=== PATIENT | female | born 1955 ===

== ENCOUNTER 2018-07-08 09:32 | Emergency (ER) | payer OTHER ==
[2018-07-08 09:44] VITALS: BMI 32.1
[2018-07-08 09:45] VITALS: RESP 16; TEMP 99.1
--- NOTE | 2018-07-08 13:38 | CT ---
Date of service: 07/08/2018 PROCEDURE: CT Thoracic Spine without contrast HISTORY: fall, h/o osteoporosis, r/o fracture COMPARISON: None available. TECHNIQUE: Axial computed tomography images were obtained of the thoracic spine without intravenous contrast. Coronal and sagittal reformatted images were created and reviewed. Radiation dose: Total exam DLP = 729.41 mGy-cm. This CT exam was performed using one or more of the following dose reduction techniques: Automated exposure control, adjustment of the mA and/or kV according to patient size, and/or use of iterative reconstruction technique. FINDINGS: VERTEBRAE: Dextroscoliotic thoracic spine deformity appears stable with no acute fracture or spondylolisthesis identified in the interval. Mild multilevel mid thoracic spondylosis identified. DISCS/SPINAL CANAL/NEURAL FORAMINA: Within the limits of the CT technique, no disc herniation seen. No central canal or neural foraminal stenosis.. PARASPINAL SOFT TISSUES: Unremarkable. OTHER FINDINGS: Unremarkable. IMPRESSION: Mild dextroscoliotic lumbar thoracic spinal deformity without acute fracture or spondylolisthesis identified. No bony central canal or neural foraminal stenosis appreciated.
--- NOTE | 2018-07-08 13:46 | CT ---
Date of service: 07/08/2018 PROCEDURE: CT Lumbar Spine without contrast HISTORY: fall, h/o osteoporosis, r/o fracture COMPARISON: None available. TECHNIQUE: Axial computed tomography images were obtained of the lumbar spine without the use of intravenous contrast. Coronal and sagittal reformatted images were created and reviewed. Radiation dose: Total exam DLP = 951.33 mGy-cm. This CT exam was performed using one or more of the following dose reduction techniques: Automated exposure control, adjustment of the mA and/or kV according to patient size, and/or use of iterative reconstruction technique. FINDINGS: VERTEBRAE: Normal lumbar curvature without vertebral body or posterior element fracture identified. Minimal multilevel spondylosis identified. Vertebral body and disc interspace heights are within normal limits. Small sclerotic foci identified at L4 and L5 as well as at S1 toward the left in particular. These are nonspecific in appearance but follow-up nuclear bone scan is advised to exclude potential aggressive bone lesion. There are not typical for benign hemangiomata although 1 May be present at L1 which is somewhat lucent toward the left as well. Multilevel facet joint degenerative arthropathy. Visualized prevertebral paraspinal soft tissues appear diffusely unremarkable. DISCS/SPINAL CANAL/NEURAL FORAMINA: L1-2: Unremarkable. L2-3: Unremarkable. Minimal disc bulging identified. L3-4: Mild generalized disc bulging is noted as well as mild facet degenerative arthropathy resulting in a borderline central canal stenosis. No significant neural foraminal stenosis bilaterally. L4-5: A generalized disc bulge is identified combining with facet arthropathy resulting in moderate central canal stenosis a [id number] bilateral neural foraminal stenoses. L5-S1: Minimal generalized disc bulging is appreciate without significant stenosis resulting. OTHER FINDINGS: None. IMPRESSION: 1. No acute fracture or spondylolisthesis identified. Level spondylosis and facet arthropathy is appreciated. 2. Moderate degenerative central canal stenosis L4-5 as well as [id number] bilateral neural foraminal stenoses. No gross disc herniation throughout the exam, however, MRI is more sensitive and can be performed for follow-up clinically warranted on an elective basis. 3. A few sclerotic foci are identified at the inferior lumbar spine and upper sacrum for which follow-up whole-body nuclear bone scan is advised with SPECT, to exclude potential aggressive bone lesion. Possible benign hemangioma L1.
--- NOTE | 2018-07-08 13:49 | CT ---
Date of service: 07/08/2018 PROCEDURE: CT Pelvis without contrast HISTORY: fall, h/o osteoporosis, r/o fracture COMPARISON: None available. TECHNIQUE: Contiguous axial images of the pelvis . No intravenous or oral contrast given. Coronal and sagittal reformats generated. Radiation dose: Total exam DLP = 754.99 mGy-cm. This CT exam was performed using one or more of the following dose reduction techniques: Automated exposure control, adjustment of the mA and/or kV according to patient size, and/or use of iterative reconstruction technique. FINDINGS: BLADDER: Unremarkable. No mass. REPRODUCTIVE ORGANS: Unremarkable. VISUALIZED BOWEL: Moderate retained fecal material is seen in various large-bowel segments with minimal sigmoid diverticular changes. No acute diverticulitis. PERITONEUM: Unremarkable, as visualized. No free fluid. No free air. LYMPH NODES: Unremarkable. No enlarged lymph nodes. BONES: No displaced fracture is identified throughout the pelvic ring with the pubic symphysis appear intact as well as the bilateral pubic bones. Sclerotic lesions identified at the lateral portion of L1 as well as more inferiorly at the left sacral ala is similar smaller focus is seen at the inferior medial left iliac bone with mild degenerative changes identified in the bilateral hip and sacroiliac joints. No SI joint distraction or hip joint dislocation identified. VASCULATURE: Unremarkable. OTHER FINDINGS: None. IMPRESSION: No acute bony or soft tissue findings grossly evident as imaged in this noncontrast examination. Few sclerotic foci are identified at the sacrum and left iliac bone for which follow-up nuclear bone scan can be performed with SPECT for added characterization. No lytic bony lesions identified. Limited bilateral sacroiliac and hip joint degenerative changes.
[2018-07-08 14:25] VITALS: BP 136/78; PULSE 72; O2SAT 99
--- NOTE | 2018-07-08 22:25 | ED PDOC ---
HPI: Back Time Seen by Provider: 07/08/18 10:59 Chief Complaint (Nursing): Back Pain Additional Complaint(s): 63 y/o with PMH of HTN and Osteoporosis presents to ED for back pain s/p mechanical fall on Saturday. Pt is not on blood thinners. States she fell on her back down 1 step after slipping on a wooden stair. Pain is bilateral over thoracic and lumbar spine with associated pain of pelvis. Pain is worse with movement. She is able to ambulate without difficulty. Denies head injury or LOC. Denies fevers, chills, headache, difficulty walking, vision changes, dizziness, bowel/bladder incontinence, saddle anesthesia, leg paresthesias or numbness, abdominal pain, N/V, bruising, swelling. Past Medical History Reviewed: Historical Data, Nursing Documentation, Vital Signs Vital Signs: Last Vital Signs Temp 99.1 F 07/08/18 09:43 Pulse 72 07/08/18 14:24 Resp 16 07/08/18 14:24 BP 136/78 07/08/18 14:24 Pulse Ox 99 07/08/18 14:24 - Medical History PMH: Arthritis (OSTEOARTHRITIS), Asthma, HTN, Hypercholesterolemia, Hyperlipidemia, Osteoporosis Denies: Atrial Fibrillation, CHF, COPD, Diabetes, Chronic Kidney Disease, Seizures - Surgical History Surgical History: Denies: CABG, Pacemaker - Family History Family History: States: Hypertension Denies: CAD - Immunization History Hx Tetanus Toxoid Vaccination: No Hx Influenza Vaccination: Yes - Home Medications Home Medications: Ambulatory Orders Medication Instructions Recorded Hydrochlorothiazide [Microzide] 12.5 mg PO DAILY #30 cap 06/24/16 Alendronate Sodium [Binosto] 70 mg PO Q7D 07/20/16 Atorvastatin [Lipitor] 20 tab PO HS 10/25/17 Cholecalciferol (Vitamin D3) 1 cap PO DAILY 10/25/17 [Vitamin D3] Fluticasone Furoate [Arnuity 1 puff IH BID 10/25/17 Ellipta] Montelukast [Singulair] 10 tab PO HS 10/25/17 metFORMIN [glucOPHAGE] 500 tab PO BID 10/25/17 - Allergies Allergies/Adverse Reactions: Allergies Allergy/AdvReac Type Severity Reaction Status Date / Time No Known Allergies Allergy Verified 07/08/16 21:58 Review of Systems ROS Statement: Except As Marked, All Systems Reviewed And Found Negative Constitutional: Negative for: Fever, Chills Eyes: Negative for: Vision Change ENT: Negative for: Ear Pain, Nose Pain, Mouth Pain, Throat Pain Cardiovascular: Negative for: Chest Pain, Palpitations Respiratory: Negative for: Cough, Shortness of Breath Gastrointestinal: Negative for: Nausea, Vomiting, Abdominal Pain, Diarrhea, Constipation Genitourinary Female: Negative for: Dysuria, Frequency, Incontinence Musculoskeletal: Positive for: Back Pain (thoracic, lumbar, pelvis), Leg Pain (right knee). Negative for: Neck Pain, Shoulder Pain Skin: Negative for: Rash Neurological: Negative for: Weakness, Numbness, Altered Mental Status, Headache, Dizziness Physical Exam - Reviewed Nursing Documentation Reviewed: Yes Vital Signs Reviewed: Yes - Physical Exam Appears: Positive for: Well, Non-toxic, No Acute Distress Head Exam: Positive for: ATRAUMATIC, NORMAL INSPECTION, NORMOCEPHALIC Skin: Positive for: Normal Color, Warm, DRY Eye Exam: Positive for: EOMI, Normal appearance, PERRL ENT: Positive for: Normal ENT Inspection Neck: Positive for: Normal, Painless ROM Cardiovascular/Chest: Positive for: Regular Rate, Rhythm Respiratory: Positive for: CNT, Normal Breath Sounds Pulses-Dorsalis Pedis (L): 2+ Pulses-Dorsalis Pedis (R): 2+ Pulses-Radial (L): 2+ Pulses-Radial (R): 2+ Gastrointestinal/Abdominal: Positive for: Normal Exam, Soft Back: Positive for: Normal Inspection, Vertebral Tenderness (midline tenderness thoracic, lumbar), Other (bilateral paraspinal tenderness, thoracic. Pain over left side of pelvis.). Negative for: Decreased ROM Extremity: Positive for: Normal ROM. Negative for: Tenderness, Deformity Neurologic/Psych: Positive for: Alert, Oriented - ECG O2 Sat by Pulse Oximetry: 99 Medical Decision Making Medical Decision Makin63 y/o with PMH of HTN and Osteoporosis presents to ED for back pain s/p mechanical fall on Saturday. Pt is not on blood thinners. States she fell on her back down 1 step after slipping on a wooden stair. Pain is bilateral over thoracic and lumbar spine with associated pain of pelvis. Pain is worse with movement. She is able to ambulate without difficulty. Denies head injury or LOC. Also complaining of chronic right knee pain. Denies fevers, chills, headache, difficulty walking, vision changes, dizziness, bowel/bladder incontinence, saddle anesthesia, leg paresthesias or numbness, abdominal pain, N/V, bruising, swelling. Exam: normal inspection of back; midline tenderness over thoracic and lumbar spine; tenderness over left side of pelvis; tenderness to bilateral thoracic paraspinal muscles. Normal cardiac, pulmonary, neuro, and abdominal exams. Initial plan: --CT w/o contrast of thoracic, lumbar spine and pelvis --tylenol for pain CT Thoracic Spine FINDINGS: VERTEBRAE: Dextroscoliotic thoracic spine deformity appears stable with no acute fracture or spondylolisthesis identified in the interval. Mild multilevel mid thoracic spondylosis identified. DISCS/SPINAL CANAL/NEURAL FORAMINA: Within the limits of the CT technique, no disc herniation seen. No central canal or neural foraminal stenosis.. PARASPINAL SOFT TISSUES: Unremarkable. OTHER FINDINGS: Unremarkable. IMPRESSION: Mild dextroscoliotic lumbar thoracic spinal deformity without acute fracture or spondylolisthesis identified. No bony central canal or neural foraminal stenosis appreciated. CT Lumbar Spine FINDINGS: VERTEBRAE: Normal lumbar curvature without vertebral body or posterior element fracture identified. Minimal multilevel spondylosis identified. Vertebral body and disc interspace heights are within normal limits. Small sclerotic foci identified at L4 and L5 as well as at S1 toward the left in particular. These are nonspecific in appearance but follow-up nuclear bone scan is advised to exclude potential aggressive bone lesion. There are not typical for benign hemangiomata although 1 May be present at L1 which is somewhat lucent toward the left as well. Multilevel facet joint degenerative arthropathy. Visualized prevertebral paraspinal soft tissues appear diffusely unremarkable. DISCS/SPINAL CANAL/NEURAL FORAMINA: L1-2: Unremarkable. L2-3: Unremarkable. Minimal disc bulging identified. L3-4: Mild generalized disc bulging is noted as well as mild facet degenerative arthropathy resulting in a borderline central canal stenosis. No significant neural foraminal stenosis bilaterally. L4-5: A generalized disc bulge is identified combining with facet arthropathy resulting in moderate central canal stenosis a [id number] bilateral neural foraminal stenoses. L5-S1: Minimal generalized disc bulging is appreciate without significant stenosis resulting. OTHER FINDINGS: None. IMPRESSION: 1. No acute fracture or spondylolisthesis identified. Level spondylosis and facet arthropathy is appreciated. 2. Moderate degenerative central canal stenosis L4-5 as well as [id number] bilateral neural foraminal stenoses. No gross disc herniation throughout the exam, however, MRI is more sensitive and can be performed for follow-up clinically warranted on an elective basis. 3. A few sclerotic foci are identified at the inferior lumbar spine and upper sacrum for which follow-up whole-body nuclear bone scan is advised with SPECT, to exclude potential aggressive bone lesion. Possible benign hemangioma L1. CT Pelvis FINDINGS: BLADDER: Unremarkable. No mass. REPRODUCTIVE ORGANS: Unremarkable. VISUALIZED BOWEL: Moderate retained fecal material is seen in various large-bowel segments with minimal sigmoid diverticular changes. No acute diverticulitis. PERITONEUM: Unremarkable, as visualized. No free fluid. No free air. LYMPH NODES: Unremarkable. No enlarged lymph nodes. BONES: No displaced fracture is identified throughout the pelvic ring with the pubic symphysis appear intact as well as the bilateral pubic bones. Sclerotic lesions identified at the lateral portion of L1 as well as more inferiorly at the left sacral ala is similar smaller focus is seen at the inferior medial left iliac bone with mild degenerative changes identified in the bilateral hip and sacroiliac joints. No SI joint distraction or hip joint dislocation identified. VASCULATURE: Unremarkable. OTHER FINDINGS: None. IMPRESSION: No acute bony or soft tissue findings grossly evident as imaged in this noncontrast examination. Few sclerotic foci are identified at the sacrum and left iliac bone for which follow-up nuclear bone scan can be performed with SPECT for added characterization. No lytic bony lesions identified. Limited bilateral sacroiliac and hip joint degenerative changes. Impression: muscle strain Plan: Take ibuprofen and tylenol as needed for pain followup with primary doctor within [address] results followup with ortho if pain persists and for right knee pain return to ED is pain worsens Plan discussed with pt who agrees and understands. pt comfortable with discharge home. Disposition - Clinical Impression Clinical Impression: Muscle strain - Disposition Referrals: Alvaro Saez MD [Staff Provider] - Disposition: Routine/Home Disposition Time: 13:30 Condition: IMPROVED Additional Instructions: [facility] ibuprofeno cada 6 horas o Tylenol cada 4 horas segn sea necesario para el dolor Seguimiento con el mdico de cabecera dentro de 2 shields Seguimiento con Ortopedia si el dolor persiste Volver a Ed si los sntomas persisten o empeoran Instructions: Muscle Strain Forms: [employer] (Italian) Print Language: NICARAGUAN
== END 2018-07-08 14:24 | disposition home or self-care (01) ==
LOC: H.ER 09:32
DX: T14.8XXA Other injury of unspecified body region, initial encounter (principal); I10 Essential (primary) hypertension; M51.36 Other intervertebral disc degeneration, lumbar region; M81.0 Age-related osteoporosis without current pathological fracture; J45.909 Unspecified asthma, uncomplicated; Z79.84 Long term (current) use of oral hypoglycemic drugs; W01.0XXA Fall on same level from slipping, tripping and stumbling without subsequent striking against object, initial encounter